=== PATIENT | male | born 1985 | race Two or more races ===

== ENCOUNTER 2024-10-24 23:50 | Emergency (ER) | payer OTHER ==
[~2024-10-24] VITALS: Ht 182.9 cm; Wt 105.2 kg
[2024-10-25] MEDS ORDERED: FAMOtidine 10 MG/ML (4ML VIAL) IV PUSH STA (02:08)
[2024-10-25] MEDS ORDERED: 0.9 % SODIUM CHLORIDE 1,000 ML IV STA (02:08)
[2024-10-25 02:30] LABS: HEMATOCRIT 39.6 % (39.0-48.0); HEMOGLOBIN 13.8 g/dL (13-16.00); MEAN CELL VOLUME 88.1 fL (80.0-100.00); MEAN CORPUSCULAR HEMOGLOBIN 30.6 pg (27.00-32.0); MEAN CORPUSCULAR HGB CONC 34.7 g/dl (32.0-36.0); PLATELET COUNT 249 K/uL (150-450); RED CELL DISTRIBUTION WIDTH 13.9 % (11.5-14.5)
[2024-10-25 02:54] LABS: CREATININE SERUM 0.96 mg/dL (0.70-1.30); GFR 87.2; POTASSIUM 3.82 mEq/L (3.5-5.1)
== END 2024-10-25 05:57 | disposition home or self-care (01) ==
LOC: ER 23:52
DX: K52.9 Noninfective gastroenteritis and colitis, unspecified (principal)

== ENCOUNTER 2025-09-06 15:18 | Emergency (ER) | payer OTHER ==
[~2025-09-06] VITALS: Ht 182.9 cm; Wt 115.7 kg
[2025-09-06] MEDS ORDERED: KETOROLAC TROMETHAMINE 30 MG VIAL IM STA (17:04)
[2025-09-06] MEDS ORDERED: DEXAMETHASONE SODIUM PHOSPHATE 4 MG/ML VIAL IM STA (17:05)
[2025-09-06] MEDS ORDERED: ORPHENADRINE CITRATE 100 MG TABLET PO ONE (17:15)
[2025-09-06] MEDS ORDERED: KETOROLAC TROMETHAMINE 30 MG VIAL ONE (18:06)
[2025-09-06] MEDS ORDERED: DEXAMETHASONE SODIUM PHOSPHATE 4 MG/ML VIAL ONE (18:07)
[2025-09-06 18:50] LABS: BASO % 1.0 % (0.1-1.2); EOS # 0.09 (0.04-0.54); EOS % 1.3 % (0.7-7.0); LYMPH # 2.32 (1.18-3.74); LYMPH % 32.8 % (19.3-53.1); MEAN PLATELET VOLUME 9.50 fl (9.4-12.4); MONO # 0.42 (0.24-0.82); MONO % 5.9 % (4.7-12.5); NEUT # 4.16 (1.56-6.13); NEUT % 58.7 % (34.0-71.1); RED CELL DISTRIBUTION WIDTH 12.9 % (11.6-14.4)
[2025-09-06 19:18] LABS: BUN CREA RATIO 17.0 (7.0-25.0); CREATININE SERUM 0.99 mg/dL (0.70-1.30); GFR 83.72; GLUCOSE FASTING 99.0 mg/dL (65-100); OSMOLALITY SERUM 281.0 MOSM/KG (275-295)
[2025-09-06] MEDS ORDERED: NORFLEX100MG PO (21:17)
[2025-09-06] MEDS ORDERED: NAPROXEN500 MG PO (21:17)
== END 2025-09-06 22:22 | disposition home or self-care (01) ==
LOC: ER 15:18
PROVIDERS: General Practice
DX: M94.0 Chondrocostal junction syndrome [Tietze] (principal); R07.89 Other chest pain